=== PATIENT | male | born 1995 | race Caucasian/White ===

== ENCOUNTER 2018-08-29 19:45 | Emergency (ER) | payer BC, MEDICAID ==
[~2018-08-29] VITALS: Ht 182.9 cm; Wt 81.8 kg
[2018-08-29 20:24] LABS: BASOPHILS % (AUTO) 0.4 % (0-1); EOSINOPHILS % (AUTO) 0.2 % (0-6); HEMATOCRIT 45.7 % (42.0-52.0); HEMOGLOBIN 15.7 g/dl (14.0-17.9); LYMPHOCYTES # (AUTO) 1.4 X10'3 (1.1-4.8); LYMPHOCYTES % (AUTO) 12.6 % (21-51); MEAN CORPUSCULAR HEMOGLOBIN 32.5 PG (27.0-31.0); MEAN CORPUSCULAR HGB CONC 34.4 g/dL (33.0-36.5); MEAN CORPUSCULAR VOLUME 94.3 FL (78-98); MEAN PLATELET VOLUME 8.5 FL (7.4-10.4); MONOCYTES # (AUTO) 0.6 X10'3 (0-0.9); MONOCYTES % (AUTO) 5.4 % (2-12); NEUTROPHILS # (AUTO) 9.1 X10'3 (1.8-7.7); NEUTROPHILS % (AUTO) 81.4 % (42-75); PLATELET COUNT 310 X10'3 (140-440); RED BLOOD COUNT 4.84 X10'6 (4.70-6.10); RED CELL DISTRIBUTION WIDTH 13.1 % (11.5-14.5); WHITE BLOOD COUNT 11.2 X10'3 (4.5-11.0)
[2018-08-29 20:38] LABS: ALANINE AMINOTRANSFERASE 23 U/L (12-78); ALBUMIN 4.3 G/DL (3.4-5.0); ALBUMIN/GLOBULIN RATIO 1.3 (1.1-1.5); ALKALINE PHOSPHATASE 103 IU/L (46-116); ANION GAP 12 (8-16); ASPARTATE AMINO TRANSFERASE 22 U/L (10-37); BLOOD UREA NITROGEN 13 MG/DL (7-18); BUN/CREATININE RATIO 12.7 (5.4-32.0); CALCIUM 9.7 MG/DL (8.5-10.1); CHLORIDE 104 MMOL/L (99-107); CREATININE 1.02 MG/DL (0.60-1.10); GLUCOSE 101 MG/DL (70-104); POTASSIUM 3.1 MMOL/L (3.5-5.1); SODIUM 142 MMOL/L (135-145); TOTAL CARBON DIOXIDE 26.1 MMOL/L (24-32); TOTAL PROTEIN 7.7 G/DL (6.4-8.2); eGFR > 90 ML/MIN
[2018-08-29] MEDS ORDERED: metoclopramide 5 mg/ml inj IV ONE (20:40)
[2018-08-29] MEDS ORDERED: normal saline 1000ML IV soln IVB ONE ×2 (20:40)
[2018-08-29] MEDS ORDERED: LORazepam 2 mg/ml vial IV ONE (20:40)
[2018-08-29] MEDS ORDERED: diphenhydrAMINE 50 mg/ml inj IV ONE (20:40)
[2018-08-29 20:45] LABS: INR 1.1 INR
[2018-08-29 20:49] LABS: AMYLASE 99 U/L (25-115); LIPASE 292 U/L (73-393)
[2018-08-29] MEDS ORDERED: ONDA4TAB12 PO (22:14)
[2018-08-29 22:15] LABS: CLARITY,URINE CLOUDY (Clear); COLOR,URINE YELLOW (Yellow); GLUCOSE, URINE NEGATIVE (Neg); KETONES,URINE >=80 mg/dl (Neg); LEUKOCYTE ESTERASE ,URINE NEGATIVE (Neg); NITRITES, URINE NEGATIVE (Neg); OCCULT BLOOD,URINE NEGATIVE (Neg); PH,URINE >=9.0 (4.8-8.0); PROTEIN,URINE 100 mg/dl (Neg); UROBILINOGEN,URINE 0.2 E.U/dL (0.2-1.0)
[2018-08-29 22:24] LABS: UA COLLECTION TYPE CLN CATCH MIDSTREAM
[2018-08-29 22:25] LABS: AMORPHOUS PHOSPHATES 3+; BACTERIA,URINE FEW /HPF (Neg); RBC,URINE NONE SEEN /HPF (0-2); SQUAMOUS EPITHELIAL CELL,UR FEW /LPF (FEW); WBC,URINE 0-4 /HPF (0-4)
[2018-08-29 23:24] VITALS: BP 123/78
== END 2018-08-29 23:27 | disposition home or self-care (01) ==
LOC: ER 19:46
DX: R10.13 Epigastric pain (principal); R11.10 Vomiting, unspecified; F12.90 Cannabis use, unspecified, uncomplicated; Z86.14 Personal history of Methicillin resistant Staphylococcus aureus infection; Z88.1 Allergy status to other antibiotic agents; Z98.890 Other specified postprocedural states
CPT/HCPCS: 36415; 80053; 81001; 82150; 83690; 85025; 85610; 96374; 96375; 99283; J1200; J2060; J2765; J7030; 96361